=== PATIENT | female | born 1955 | race Hispanic/Latino ===

== ENCOUNTER 2017-12-23 12:04 | Outpatient (CLI) | payer BC ==
[~2017-12-23 12:04] MED LIST: ISOVUE-370 76%-LOCM 1 ML ONE
--- NOTE | 2017-12-23 15:28 | CT ---
CT ABDOMEN AND PELVIS WITH AND WITHOUT IV CONTRAST: Date: 12/23/17 HISTORY: Complex renal cyst. COMPARISON: CT abdomen of 11/29/16. FINDINGS: There are dependent changes in the lung bases. There are changes of cholecystectomy. The liver, splee n, pancreas, and adrenal glands are normal. No free air, free fluid, or lymphadenopathy noted in the abdomen or pelvis. Colonic diverticulosis again seen. There is no evidence of aneurysmal dilatation o f the abdominal aorta. Degenerative changes are present in the spine. The partially exophytic cystic mass arising from the posterior interpolar right kidney measures 3.0 c m on the current exam and demonstrates attenuation values of 20 Hounsfield units precontrast, 24 Houn sfield units nephrographic phase, and 23 Hounsfield units excretory/delayed phase. No solid component is identified. The anterolateral aspect of the left renal mid pole cortex is a stable 1.5 cm lesion, too small to ch aracterize by enhancement criteria. The tiny hypodensity posterior to this is also too small to travon cterize, but is stable. No new renal masses are identified. No calculi are seen in the kidneys, ureters, or the urinary bladd er. No hydroureteronephrosis noted on either side. 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 Follow-up is recommended in 1 year. POS: JENNY
== END 2017-12-23 12:05 | disposition home or self-care (01) ==
LOC: BICCT 12:04
PROVIDERS: ATTEND Urology
DX: N28.1 Cyst of kidney, acquired (principal)
CPT/HCPCS: 74178

== ENCOUNTER 2019-08-20 10:41 | Outpatient (CLI) | payer BC ==
[2019-08-20] MEDS ORDERED: Iopamidol-370 76% 500 ML 1 ML ONE (14:24)
--- NOTE | 2019-08-20 15:17 | CT ---
CT ABDOMEN WITH AND WITHOUT CONTRAST: 08/20/19 Postcontrast images were obtained with portal venous phase and delayed venous phase. INDICATIONS: Follow-up renal lesions. Comparison made to CT abdomen and pelvis 12/23/17. 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 Hounsfield units o n precontrast were recorded at 20 on that exam. Review of the kidneys today on the precontrast study shows resolution of the cystic lesion from the p osterior right kidney. However, today at the same location, there is an indeterminate isodense lesion on noncontrast study. This lesion shows some heterogeneity with internal enhancement on postcontrast margins and measures approximately 1.3 cm. The two cystic lesions in the left renal cortex described on prior exam remains stable. The larger on e measures approximately 1.5 cm. The lung base is clear. Liver, spleen and pancreas unremarkable. Post cholecystectomy change. Stomach and duodenum unremarkab le. Adrenal glands normal. Aorta normal caliber. No adenopathy. Bowel loops appear unremarkable as vi sualized. Osseous structures unremarkable. IMPRESSION: 1. The mildly complex cyst arising from the posterior right kidney described on exam of 2018 i ch was described as a Bosniak 2F lesion is no longer seen. On today's exam, at this location from the posterior right renal cortex is an indeterminate mass measuring 1.3 cm. this is isodense on precontr ast and becomes relatively isodense on delayed venous. It shows heterogeneous enhancement on the port al venous phase. Close follow-up is recommended. 2. The small cystic lesions in the left kidney described previously remains stable. POS: AGAryan
== END 2019-08-20 10:42 | disposition home or self-care (01) ==
LOC: BICCT 10:41
PROVIDERS: ATTEND Urology
DX: N28.1 Cyst of kidney, acquired (principal); N28.89 Other specified disorders of kidney and ureter
CPT/HCPCS: 74170; 82565; Q9967

== ENCOUNTER 2020-04-22 13:56 | Outpatient (CLI) | payer BC ==
[~2020-04-22 13:56] MED LIST changes: -ISOVUE-370 76%-LOCM 1 ML ONE; +Iopamidol-370 76% 500 ML 1 ML ONE
--- NOTE | 2020-04-22 15:18 | CT ---
CT OF THE ABDOMEN WITH AND WITHOUT CONTRAST: INDICATION: Followup renal cyst. COMPARISON: Prior CT of the abdomen and pelvis dated 08/19/2019, 12/23/2017, and 05/23/2015. FINDINGS: The hypodense lesion within the left mid kidney with some enhancing internal septations is slightly l arger measuring 16.8 x 11.8 mm where previously it measured 13.7 x 12.7 mm. The small 8-9 mm hypoden sity within the posterior mid left kidney is stable. The partially collapsed cyst involving the posterior margin of the right mid kidney is stable. Small subcentimeter hypodensity involving the superior pole of the right kidney is stable. Gallbladder is surgically absent. The liver, pancreas, adrenal glands, and spleen appear within norm al limits. There is scattered colonic diverticula. Surgical clips seen within the umbilical region. No free fluid or enlarged lymph nodes evident. No acute osseous abnormality is evident. IMPRESSION: 1. The Bosniak 2F cyst involving the left mid kidney is slightly larger than on the most recent comp arison dated 08/20/2019. Followup evaluation in 6-8 months may be helpful to document stability. 2. Small simple cyst involving the posterior aspect of the left mid kidney is stable. 3. Partially collapsed cyst on the posterior margin of the right mid kidney is stable. POS: BH
== END 2020-04-22 13:57 | disposition home or self-care (01) ==
LOC: BICCT 13:56
PROVIDERS: ATTEND Urology
DX: N28.1 Cyst of kidney, acquired (principal)
CPT/HCPCS: 74170; Q9967

== ENCOUNTER 2023-01-21 07:57 | Outpatient (CLI) | payer MEDICARE | END 2023-01-21 07:58 | disposition home or self-care (01) | LOC: BICCT 07:57 | PROVIDERS: ATTEND Urology | DX: N28.1 Cyst of kidney, acquired (principal) | CPT/HCPCS: 74170; 82565 ==

== ENCOUNTER 2023-03-22 08:04 | Day surgery (SDC) | payer MEDICARE, OTHER ==
[2023-03-22 09:05] LABS: #Eosinphils 0.1 thou/uL (0.0-0.7); #Monocytes 0.5 thou/uL (0.11-0.59); #Neutrophils 3.1 thou/uL (1.40-6.50); %Basophils 0.4 % (0.0-1.0); %Eosinophils 2.1 % (0.0-10.0); %Lymphocytes 23.5 % (21.0-51.0); %Monocytes 10.5 % (0.0-10.0); %Neutrophils 63.1 % (42.0-75.0); Hematocrit 41.3 % (36.0-47.0); Hemoglobin 14.1 g/dL (12.0-16.0); Mean Corpuscular HGB CONC 34.1 g/dL (32.0-36.0); Mean Corpuscular Hemoglobin 31.9 pg (27.0-31.0); Mean Corpuscular Volume 93.4 fl (78.0-98.0); Mean Platelet Volume 10.4 fL (7.4-10.4); Platelet Count 173 10x3/uL (130-400); RBC Distribution Width 12.8 % (11.5-14.5); Red Blood Cell (RBC) Count 4.42 mill/uL (4.20-5.40); White Blood Cell (WBC) Count 4.9 10x3/uL (4.8-10.8)
[2023-03-22 09:13] LABS: INR-International Normal Ratio 0.9; Prothrombin Time 11.9 sec (12.0-14.7)
[2023-03-22] MEDS ORDERED: Lidocaine 1% PF 5 ML VIAL ONE (09:59)
[2023-03-22] MEDS ORDERED: Midazolam HCl 2 mg/2 ml Vial ONE ×2 (09:59→11:57)
[2023-03-22] MEDS ORDERED: fentaNYL 50 mcg/mL 1 mL Vial ONE ×3 (09:59→11:57)
[2023-03-22] MEDS ORDERED: Sodium Bicarbonate 0.5 MEQ/ML SDV 10 ML ONE (10:00)
[2023-03-22] MEDS ORDERED: Lidocaine 1% w/Epinephrine 1:100K 20 ML VIAL ONE (11:04)
[2023-03-22 14:24] VITALS: BP 159/83; TEMP 97.1
== END 2023-03-22 15:30 | disposition home or self-care (01) ==
LOC: CT 08:04
PROVIDERS: ATTEND Urology
PROC: 0TB03ZX Excision of Right Kidney, Percutaneous Approach, Diagnostic (ICD-10-PCS; principal; 2023-03-22)
DX: C64.1 Malignant neoplasm of right kidney, except renal pelvis (principal); N28.1 Cyst of kidney, acquired; Z91.040 Latex allergy status
CPT/HCPCS: 50200; 77012; 85025; 85610; 85730; J3010; 36415; 88305; 88329; 88341; 88342; J2250

== ENCOUNTER 2023-04-12 07:36 | Outpatient (CLI) | payer MEDICARE, OTHER, SELFPAY ==
[2023-04-12] MEDS ORDERED: Iopamidol 370 76% 100 ML VIAL ONE (14:47)
== END 2023-04-12 07:37 | disposition home or self-care (01) ==
LOC: CT 07:36
PROVIDERS: ATTEND Urology
DX: C64.1 Malignant neoplasm of right kidney, except renal pelvis (principal); N28.1 Cyst of kidney, acquired; R93.7 Abnormal findings on diagnostic imaging of other parts of musculoskeletal system
CPT/HCPCS: 71260; 78306; 82565; A9503; Q9967

== ENCOUNTER 2023-04-17 11:24 | Outpatient (CLI) | payer MEDICARE | END 2023-04-17 11:25 | disposition home or self-care (01) | LOC: RAD 11:24 | PROVIDERS: ATTEND Urology | DX: C64.1 Malignant neoplasm of right kidney, except renal pelvis (principal) | CPT/HCPCS: 70150; 71120 ==

== ENCOUNTER 2023-05-03 09:25 | Outpatient (CLI) | payer MEDICARE ==
[2023-05-03 10:46] LABS: Bilirubin Neg (Negative); Blood, Urine Negative (Negative); Clarity Clear (Clear); Glucose, Urine (Dipstick) Normal (Negative); Ketone, Urine Negative (Negative); Leukocyte Negative (Negative); Nitrite Negative (Negative); Protein, Urine (Dipstick) Negative (Neg-Trace); Specific Gravity, Urine 1.015 (1.005-1.030); Urobilinogen Normal mg/dL (Less than 2); pH, Urine 6.5 (5.0-9.0)
[2023-05-03 10:53] LABS: Hematocrit 40.5 % (34.9-44.5); Hemoglobin 14.1 g/dL (12.0-15.5); Mean Corpuscular HGB CONC 34.8 g/dL (32.0-36.0); Mean Corpuscular Hemoglobin 32.1 pg (27.0-33.0); Mean Corpuscular Volume 92.3 fl (81.6-98.3); Mean Platelet Volume 10.9 fl (7.4-10.4); Platelet Count 191 10x3/uL (150-450); RBC Distribution Width 12.9 % (11.5-14.5); Red Blood Cell (RBC) Count 4.39 10x6/uL (3.90-5.03); White Blood Cell (WBC) Count 5.2 10x3/uL (3.5-10.5)
[2023-05-03 11:02] LABS: INR-International Normal Ratio 0.9; PTT 27.4 sec (22.0-33.0); Prothrombin Time 9.9 sec (9.5-12.1)
[2023-05-03 11:04] LABS: Anion Gap 11 mmol/L (10-20); BUN (Urea Nitrogen) 11 mg/dL (9.8-20.1); Calc. Creatinine Clearance 0 mL/min (70-130); Calcium 8.8 mg/dL (7.8-10.44); Carbon Dioxide 25 mmol/L (23-31); Chloride 107 mmol/L (98-107); Estimated GFR 85; Glucose 125 mg/dL (80-115); Potassium 4.1 mmol/L (3.5-5.1); Sodium 139 mmol/L (136-145)
[2023-05-03 11:11] LABS: RBC/HPF None Seen HPF (0-3); WBC/HPF 0-3 HPF (0-3)
[2023-05-03 11:12] LABS: Bacteria/HPF 1+ HPF (None Seen)
== END 2023-05-03 09:26 | disposition home or self-care (01) ==
LOC: LABBT 09:25
PROVIDERS: ATTEND Urology
DX: Z01.818 Encounter for other preprocedural examination (principal); C64.1 Malignant neoplasm of right kidney, except renal pelvis; N28.1 Cyst of kidney, acquired; Z87.448 Personal history of other diseases of urinary system; R39.15 Urgency of urination
CPT/HCPCS: 71046; 80048; 81001; 85027; 85610; 85730; 86850; 86900; 86901; 87086; 93005; 93010

== ENCOUNTER 2023-05-08 12:28 | Outpatient (CLI) | payer MEDICARE ==
[2023-05-08] MEDS ORDERED: Iopamidol 370 76% 100 ML VIAL ONE (13:04)
== END 2023-05-08 12:29 | disposition home or self-care (01) ==
LOC: BICCT 12:28
PROVIDERS: ATTEND Urology
DX: C64.1 Malignant neoplasm of right kidney, except renal pelvis (principal); N28.1 Cyst of kidney, acquired
CPT/HCPCS: 74170

== ENCOUNTER 2024-04-03 07:34 | Outpatient (CLI) | payer OTHER ==
[2024-04-03] MEDS ORDERED: Iopamidol 370 76% 100 ML VIAL ONE (14:32)
== END 2024-04-03 07:35 | disposition home or self-care (01) ==
LOC: CT 07:34
PROVIDERS: ATTEND Urology
DX: C64.1 Malignant neoplasm of right kidney, except renal pelvis (principal); N28.1 Cyst of kidney, acquired; R39.15 Urgency of urination; N28.89 Other specified disorders of kidney and ureter; K83.8 Other specified diseases of biliary tract; K57.30 Diverticulosis of large intestine without perforation or abscess without bleeding; Z90.49 Acquired absence of other specified parts of digestive tract; Z90.5 Acquired absence of kidney
CPT/HCPCS: 74178; Q9967